=== PATIENT | female | born 1995 | race Caucasian/White ===

== ENCOUNTER 2016-12-30 20:05 | Emergency (ER) | payer OTHER ==
--- NOTE | ~2016-12-30 | CT2 ---
[facility] RADIOLOGY TEXT RESULTS PATIENT: TAMI GEORGE LOCATION: SED : [birth year] UNIT #: [id number] AGE: [address]: ADRIANA SWARTZ SEX: F ORDER DR: [id number] [address] [id number] MR#: [id number] Acc #: [id number] NAME: TAMI GEORGE : 1995 SEX: F STUDY DATE/TIME: 12/30/2016 22:13 UNIT: SED ROOM: STUDY DESCRIPTION: CT Abd and Pelv W Cont Attending Physician: Adriana Swartz Aprn Ordering Physician: Adriana Swartz Aprn Primary Care Physician: Primary Care Physician No MEDICAL IMAGING REPORT This report is preliminary unless electronic signature is present. EXAM CT scan of the abdomen and pelvis with contrast 12/30/2016 HISTORY Abdominal pain and blood in stool for the past 4 days with diarrhea. TECHNIQUE Spiral CT was performed through the abdomen and pelvis following intravenous contrast administration only as per clinician request. This CT examination was performed with one or more of the following radiation dose reduction techniques: automatic exposure control, adjustment of mA and/or kV according to patient size, and iterative reconstruction. FINDINGS ABDOMEN: The exam is limited by the lack of oral contrast. The liver, spleen, pancreas, gallbladder and biliary tree, adrenal glands and kidneys are normal. PELVIS: The gut, mesenteric and truong structures are normal. There is a small amount of free fluid in the pelvis. Lung bases are normal. IMPRESSION Negative. Dictated by... Mitch Hernandez M.D. THIS IS AN ELECTRONICALLY VERIFIED REPORT Mitch Hernandez M.D. at 12/31/2016 7:23 AM [facility]katie [facility] RADIOLOGY TEXT RESULTS PATIENT: TAMI GEORGE LOCATION: SED : [birth year] UNIT #: [id number] AGE: [address]: ADRIANA SWARTZ SEX: F ORDER DR: TD: 12/31/2016 07:13 JOB #: [id number] MEDICAL IMAGING REPORT Page 1 of 1
[~2016-12-30 20:05] MED LIST: ANTIVERT PO; BIRTH CONTROL IN ARM; NO MEDICATIONS; VOLTAREN75 MG PO; ZOFRAN ODT4 MG SL
[2016-12-30] MEDS ORDERED: BIRTH CONTROL PILL (20:13)
[2016-12-30] MEDS ORDERED: MAXALT5 MG PO (20:14)
[2016-12-30 21:03] LABS: URINE SOURCE CLEAN CATCH
[2016-12-30 21:04] LABS: BASOPHIL% 0.3 % (0-2.5); EOSINOPHIL% 0.4 % (0.0-7.0); HEMATOCRIT 37.2 % (35.0-45.0); HEMOGLOBIN 12.4 gm/dL (12.0-16.0); LYMPHOCYTE# 0.8 X10e3 (1.0-3.5); LYMPHOCYTE% 16.6 % (17.0-45.0); MEAN CELL VOLUME 81.2 FL (83-96); MEAN CORPUSCULAR HEMOGLOBIN 27.1 PG (28-34); MEAN CORPUSCULAR HGB CONC 33.4 g/dL (30-36); MEAN PLATELET VOLUME 7.9 FL (6.5-11.5); MONOCYTE# 0.3 X10e3 (0-1.0); MONOCYTE% 5.1 % (3.0-12.0); NEUTROPHIL# 3.9 X10e3 (1.5-7.1); NEUTROPHIL% 77.6 % (40-75); PLATELET COUNT 197 X10e3 (140-420); RED BLOOD COUNT 4.59 X10e (3.90-5.30); RED CELL DISTRIBUTION WIDTH 16.6 % (11.0-15.5)
[2016-12-30 21:06] LABS: URINE APPEARANCE CLEAR; URINE BILIRUBIN NEG (NEG); URINE BLOOD 3+ (NEG); URINE COLOR YELLOW; URINE GLUCOSE NEG (NORM); URINE KETONE NEG (NEG); URINE LEUKOCYTE ESTERASE NEG (NEG); URINE NITRATE NEG (NEG); URINE PROTEIN NEG (NEG); URINE SPECIFIC GRAVITY <=1.005 (1.003-1.035); URINE UROBILINOGEN 0.2 MG/DL (NORM)
[2016-12-30 21:08] LABS: DIFF IND NO; MICRO INDICATED? YES
[2016-12-30 21:12] LABS: CULTURE INDICATED? NO; URINE BACTERIA NEG (NEG)
[2016-12-30 21:13] LABS: URINE SQUAMOUS EPITHELIAL CELL OCCAS /[HPF]
[2016-12-30 21:20] LABS: ALBUMIN SERUM 4.4 g/dL (3.5-5.0); BILIRUBIN, DIRECT 0.1 mg/dL (0.0-0.2); BILIRUBIN,TOTAL 1.1 mg/dL (0.2-2.0); BUN/CREATININE RATIO 14.28; CALCIUM SERUM 9.8 mg/dL (8.4-10.2); CREATININE SERUM 0.7 mg/dL (0.6-1.4); GLOM FILT RATE Estimated 122.1 mL/min (>60); POTASSIUM 3.8 mmol/L (3.5-5.1); PROTEIN TOTAL SERUM 7.6 g/dL (6.0-8.3)
== END 2016-12-30 23:29 | disposition home or self-care (01) ==
LOC: SED 20:05
PROVIDERS: Nurse Practitioner Family
DX: R19.7 Diarrhea, unspecified (principal); K92.1 Melena; R10.84 Generalized abdominal pain; R11.0 Nausea; Z79.899 Other long term (current) drug therapy
CPT/HCPCS: 36415; 74177; 80048; 80076; 81003; 82150; 82270; 83690; 84703; 85025; 96361; 96374; 99284; J2405; Q9967